=== PATIENT | male | born 1985 | race Caucasian/White ===

== ENCOUNTER 2019-09-11 21:56 | Emergency (ER) | payer SELFPAY ==
[~2019-09-11] VITALS: Ht 172.7 cm; Wt 91.0 kg
[2019-09-11 22:30] VITALS: BP 151/69
== END 2019-09-11 23:40 | disposition left against medical advice (07) ==
LOC: ER 21:56
DX: Z53.21 Procedure and treatment not carried out due to patient leaving prior to being seen by health care provider (principal)

== ENCOUNTER 2019-09-12 20:11 | Emergency (ER) | payer MEDICAID ==
[~2019-09-12] VITALS: Ht 172.7 cm; Wt 86.0 kg
[2019-09-13] MEDS ORDERED: SODIUM CHLORIDE 0.9% 1,000 ML IV ONE (00:52)
[2019-09-13] MEDS ORDERED: ONDANSETRON HCL 4MG/2ML INJ IV STA (00:52)
[2019-09-13] MEDS ORDERED: MORPHINE SULFATE 4 MG/ML CPJ (NOT FOR IM USE) IV STA (00:52)
[2019-09-13 01:11] LABS: BASOPHILS % 0.7 % (0.0-2.0); EOSINOPHILS % 3.1 % (0.0-5.0); HEMATOCRIT. 42.2 % (42.0-52.0); HEMOGLOBIN. 14.2 g/dL (14.0-18.0); LYMPHOCYTES % 40.6 % (20.0-50.0); MEAN CORPUSCULAR HEMOGLOBIN 29.6 pg (28.0-32.0); MEAN CORPUSCULAR VOLUME 88.2 fL (80.0-94.0); MEAN PLATELET VOLUME 9.3 fl (7.4-10.4); MONOCYTES % 7.3 % (2.0-8.0); NEUTROPHILS % 48.3 % (40.0-76.0); PLATELET 215 x1000/uL (130-400); RED BLOOD CELL COUNT 4.78 mill/uL (4.7-6.1); RED CELL DISTRIBUTION WIDTH 13.5 % (11.6-14.6)
[2019-09-13 01:21] LABS: CHLORIDE 106 mEq/L (98-107)
[2019-09-13 04:00] LABS: CLARITY URINE CLEAR (CLEAR); COLOR URINE YELLOW (YELLOW); KETONES URINE NEGATIVE (NEGATIVE); LEUKOCYTE ESTERASE URINE NEGATIVE (NEGATIVE); NITRITE URINE NEGATIVE (NEGATIVE); OCCULT BLOOD URINE NEGATIVE (NEGATIVE); PROTEIN URINE NEGATIVE (NEGATIVE); SPECIFIC GRAVITY URINE 1.015 (1.005-1.030); UROBILINOGEN URINE 0.2 E.U./dL (0.2-1.0)
[2019-09-13 06:43] VITALS: BP 120/74
== END 2019-09-13 06:44 | disposition home or self-care (01) ==
LOC: ER 20:11
DX: R10.9 Unspecified abdominal pain (principal)
CPT/HCPCS: 36415; 71045; 76705; 80053; 81003; 83690; 85025; 96374; 96375; 99284; J2270; J2405; J7030; Z7610